=== PATIENT | male | born 1940 | race Caucasian/White ===

== ENCOUNTER 2018-07-12 08:50 | Emergency (ER) | payer MEDICARE, OTHER ==
[~2018-07-12] VITALS: Ht 165.1 cm; Wt 68.0 kg
[~2018-07-12 08:50] MED LIST: AMLO2.5T4 PO; ASCO-376 PO; ATEN25TA PO; BISA10SU12 RC; CRAN405C PO; DOCU-141 PO; FERR325T24 PO; GABA100C PO; HYDR-3024 PO; HYPR15DR9 EACHEYE; LEVO75TA7 PO; MAGN400O6 PO; MORP15TA PO; MULT1CAP34 PO; NA P133E RC; NITR0.4T13 SL; OMEP20TA5 PO; ONDA4TAB5 PO; SENN-168 PO; TAMS-3 PO
--- NOTE | 2018-07-12 09:23 | NUR ---
Patient is AOx4, refusing all diagnostic testing, MD notified.
--- NOTE | 2018-07-12 09:24 | NUR ---
MD talked to this patient again regarding the need for diagnostic tests. Patient refused all tests. Patient said that he cam to ER because he is now homeless & was "booted out" of his assisted living home.
--- NOTE | 2018-07-12 09:58 | NUR ---
concrete worker Milena is here in ER.
--- NOTE | 2018-07-12 10:22 | NUR ---
Patient walked to bathroom but did not provide any urine specimen. Urine cup was provided earlier.
--- NOTE | 2018-07-12 10:50 | NUR ---
Written and verbal discharge instructions were given to patient. Patient verbalizes understanding of instructions. Patient is ambulatory with steady gait. A list of available shelters in surrounding area was also provided. Patient signed the HOMELESS waiver form-wirnessed by me. Dietary prepared "to go" sandwich paper bag & bottle of juice were given to patient as well. New clothing from the donated clothes pile for homeless was also given by our marriage and family social worker Milena.
--- NOTE | 2018-07-12 16:50 | NUR ---
10:05am: SS consultation requested: SW met with patient. Patient is a 78 year old homeless male. Patient stated that he was evicted from his section 8 housing about 1 month ago, and has been living on the streets. SW asked patient if he had any family or friends that he can contact for assistance, and patient stated that he did not have anyone to call. SW offered patient information on homeless shelters and patient declined, stating "[facility] addict[facility] and people who will steal my stuff". However, patient was receptive to other homeless resources, such as places to go for meals and showers, and case management services. SW provided patient with the following resources: 1) [place] [facility] Directory, which includes locations throughout the [facility] that patient can go for hot meals, sack lunches, showers, and food pantries. 2) A list of medical clinics, mental health clinics, and substance abuse treatment programs. SW called [facility] [phone] and spoke with [place] to refer the patient for case management services, and [facility] stated that the patient could walk-in for services any time Tuesday through Tuesday from 8am-4pm. This information was relayed to the patient, who expressed understanding. A pair of pants was provided to the patient by this SW. A meal was provided to the patient by the ED nurse. Patient stated that he did not want assistance with transportation and wanted to be discharged to himself. Homeless patient waiver form signed by the patient. The waiver form, along with copies of the resources provided to the patient, were filed in patient's ED chart. Dr. Zambrano was informed of above. No further SS interventions needed at this time.
== END 2018-07-12 10:56 | disposition home or self-care (01) ==
LOC: ER 08:50
DX: R60.9 Edema, unspecified (principal); R35.0 Frequency of micturition; F17.200 Nicotine dependence, unspecified, uncomplicated; E03.9 Hypothyroidism, unspecified; Z59.0 Homelessness; Z88.6 Allergy status to analgesic agent; Z88.8 Allergy status to other drugs, medicaments and biological substances; Z79.899 Other long term (current) drug therapy; Z79.891 Long term (current) use of opiate analgesic
CPT/HCPCS: A4663

== ENCOUNTER 2018-07-12 15:59 | Emergency (ER) | payer MEDICARE, OTHER ==
[~2018-07-12] VITALS: Ht 165.1 cm; Wt 68.0 kg
[2018-07-12 16:30] LABS: CARBON DIOXIDE 29 mmol/L (21-32); CHLORIDE 106 mmol/L (98-107); CREATININE 1.2 mg/dL (0.6-1.3); GLUCOSE 108 mg/dL (74-106); UREA NITROGEN, BLOOD 21 mg/dL (7-18)
[2018-07-12 16:32] LABS: BASOPHILS # (AUTO) 0.1 K/uL (0.0-8.0); BASOPHILS % (AUTO) 1.4 % (0.0-2.0); EOSINOPHILS # (AUTO) 0.1 K/uL (0.0-0.7); EOSINOPHILS % (AUTO) 2.1 % (0.0-7.0); HEMATOCRIT 36.6 % (36.7-47.1); HEMOGLOBIN 12.6 g/dL (12.5-16.3); LYMPHOCYTES # (AUTO) 0.9 K/uL (20.0-40.0); LYMPHOCYTES % (AUTO) 20.6 % (20.5-51.5); MEAN CORPUSCULAR HEMOGLOBIN 30.7 uug (23.8-33.4); MEAN CORPUSCULAR HGB CONC 34 g/dL (32.5-36.3); MEAN CORPUSCULAR VOLUME 89.6 fL (73.0-96.2); MONOCYTES # (AUTO) 0.4 K/uL (2.0-10.0); MONOCYTES % (AUTO) 9.6 % (0.0-11.0); NEUTROPHILS % (AUTO) 66.3 % (38.5-71.5); PLATELET COUNT (AUTO) 65 K/uL (152-348); RED BLOOD CELL COUNT(AUTO) 4.09 MIL/uL (4.06-5.63); WHITE BLOOD COUNT (AUTO) 4.5 K/uL (3.6-10.2)
[2018-07-12 16:42] LABS: ALANINE AMINOTRANSFERASE 106 U/L (16-63); ALKALINE PHOSPHATASE 110 U/L (50-136); ASPARTATE AMINOTRANSFERASE 93 U/L (15-37); BILIRUBIN,DIRECT 0.3 mg/dL (0.0-0.2); BILIRUBIN,TOTAL 0.7 mg/dL (0.2-1.0); TOTAL PROTEIN, SERUM 6.9 g/dL (6.4-8.2)
[2018-07-12] MEDS ORDERED: FUROSEMIDE 20 MG/2 ML VIAL IV ONE (17:15)
[2018-07-12] MEDS ORDERED: FUROSEMIDE 20 MG/2 ML VIAL ONE (17:21)
--- NOTE | 2018-07-12 17:30 | NUR ---
Adult diapers provided.
[2018-07-12 17:34] LABS: LYMPHOCYTES % (MANUAL) 19 % (20-40); NEUTROPHILS % (MANUAL) 78 % (42-75)
[2018-07-12 17:35] LABS: MONOCYTES % (MANUAL) 3 % (2-10)
--- NOTE | 2018-07-12 17:40 | NUR ---
IV removed. Catheter intact and site benign. Pressure and 4x4 gauze applied to site. No bleeding noted. Patient was given written and verbal discharge instructions. Patient verbalizes understanding of instructions. Patient is ambulatory with steady gait using his own walker. Patient still refuses offer of long term placement@this time. Patient still has the list of available shelters in surrounding area. Please see social security benefits interviewer's previous notes from today- no changes with social service needs at this time. Urinal x2 & 3 adult diapers were provided per patient's request
== END 2018-07-12 17:45 | disposition home or self-care (01) ==
LOC: ER 16:02
DX: R60.9 Edema, unspecified (principal); E03.9 Hypothyroidism, unspecified; F17.200 Nicotine dependence, unspecified, uncomplicated; Z88.6 Allergy status to analgesic agent; Z88.8 Allergy status to other drugs, medicaments and biological substances; Z59.0 Homelessness; Z79.899 Other long term (current) drug therapy
CPT/HCPCS: 36415; 71045; 80048; 80076; 83880; 84484; 85025; 85730; 96374; 99284; J1940; 70030-TC; A4663

== ENCOUNTER 2018-07-13 21:43 | Emergency (ER) | payer MEDICARE, OTHER ==
[~2018-07-13] VITALS: Ht 165.1 cm; Wt 64.9 kg
[2018-07-13] MEDS ORDERED: ONDANSETRON 4 MG/2 ML VIAL IV ONE (22:30)
[2018-07-13] MEDS ORDERED: HYDROMORPHONE 1 MG/1 ML DISP.SYRIN IV ONE (22:30)
--- NOTE | 2018-07-13 22:38 | NUR ---
PATIENT REFUSED TO HAVE IV HEP LOCK INSERTED AND LAB DRAW. DR CASTRO AWARE. PATIENT REFUSED IV MEDICATION TO BE GIVEN ALSO.
--- NOTE | 2018-07-13 22:45 | NUR ---
PATIENT URINATED 150ML OF CLEAR URINE ON URINAL. BLADDER SCAN PROFORMED AFTER. RESULT WAS 25ML
--- NOTE | 2018-07-13 22:50 | NUR ---
PATIENT OUT OF UNIT FOR CT SCAN VIA GURNY
[2018-07-13 22:58] LABS: *BILIRUBIN,URIN NEGATIVE (NEGATIVE); *BLOOD, URINE NEGATIVE (NEGATIVE); *CLARITY,URINE CLEAR (CLEAR); *COLOR,URINE YELLOW (YELLOW); *KETONES,URINE NEGATIVE (NEGATIVE); LEUKOCYTE ESTERASE ,URINE NEGATIVE (NEGATIVE); NITRITE, URINE NEGATIVE (NEGATIVE); UGLUCOSE NEGATIVE (NEGATIVE)
[2018-07-13 23:07] LABS: BACTERIA,URINE NONE SEEN /HPF (NONE SEEN); RBC,URINE 0-3 /HPF (0-3); SQUAMOUS EPITHELIAL CELL,UR FEW /HPF (NONE SEEN); WBC,URINE 0-3 /HPF (0-3)
[2018-07-13 23:08] LABS: MUCUS,URINE FEW /LPF (0-FEW)
--- NOTE | 2018-07-13 23:16 | NUR ---
PATIENT BACK FROM CT SCAN WITH NO DISTRESS NOTED
--- NOTE | 2018-07-14 00:15 | NUR ---
PATIENT SLEEPING IN ROOM WITH NO DISTRESS NOTED. CT RESULT PENDING
--- NOTE | 2018-07-14 01:58 | NUR ---
PATIENT WAS GIVEN MEAL. NO DISTRESS NOTED
--- NOTE | 2018-07-14 03:00 | NUR ---
PATIENT IN ROOM WITH NO DISTRESS NOTED
--- NOTE | 2018-07-14 06:27 | NUR ---
Patient given written and verbal discharge instructions. Patient verbalizes understanding of instructions. Patient is ambulatory with steady gait. Refuses offer of group home placement. Patient given list of available shelters in surrounding area.
[2018-07-14 06:28] VITALS: BP 145/88
== END 2018-07-14 06:29 | disposition home or self-care (01) ==
LOC: ER 21:43
DX: G89.29 Other chronic pain (principal); M54.5 Low back pain; R32 Unspecified urinary incontinence; R15.9 Full incontinence of feces; F31.9 Bipolar disorder, unspecified; N40.0 Benign prostatic hyperplasia without lower urinary tract symptoms; E03.9 Hypothyroidism, unspecified; F17.200 Nicotine dependence, unspecified, uncomplicated; Z59.0 Homelessness; Z88.6 Allergy status to analgesic agent; Z88.8 Allergy status to other drugs, medicaments and biological substances; Z79.899 Other long term (current) drug therapy
CPT/HCPCS: 72131; A4663

== ENCOUNTER 2018-07-21 09:09 | Emergency (ER) | payer MEDICARE, OTHER ==
[~2018-07-21] VITALS: Ht 165.1 cm; Wt 68.0 kg
--- NOTE | 2018-07-21 09:27 | NUR ---
Dr Abdullahi is at bedside doing his MSE.
--- NOTE | 2018-07-21 09:38 | NUR ---
Patient does not wish to proceed with medical care recommended by Dr. Abdullahi. Patient given information related to possible complications, up to and including , which could occur as a result of leaving the hospital at this time. Patient verbalizes understanding of risks involved due to leaving against medical advice. Patient has signed AMA form. Patient is ambulatory with steady gait. Refuses offer of nursing home placement. Patient given list of available shelters in surrounding area. Patient signed the HOMELESS patient waiver form.
== END 2018-07-21 09:42 | disposition left against medical advice (07) ==
LOC: ER 09:09
DX: R19.7 Diarrhea, unspecified (principal); M79.601 Pain in right arm; M79.602 Pain in left arm; E03.9 Hypothyroidism, unspecified; F17.200 Nicotine dependence, unspecified, uncomplicated; Z88.6 Allergy status to analgesic agent; Z88.5 Allergy status to narcotic agent; Z88.8 Allergy status to other drugs, medicaments and biological substances; Z59.0 Homelessness
CPT/HCPCS: A4663

== ENCOUNTER 2018-07-21 23:23 | Emergency (ER) | payer MEDICARE, OTHER ==
[~2018-07-21] VITALS: Ht 165.1 cm; Wt 68.0 kg
--- NOTE | 2018-07-21 23:40 | NUR ---
Pt. ambulated into ED w/ multiple complaints, 01/11 CP and arm pain since this morning, diahrrea x 3 weeks, pt. is homeless and reports hx of cirrhosis, hep. C, and gall bladder removal, A/Ox4, pt. 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
--- NOTE | 2018-07-21 23:43 | NUR ---
at bedside for MSE
--- NOTE | 2018-07-22 00:05 | NUR ---
Rad. tech. at bedside for CXR
--- NOTE | 2018-07-22 00:21 | NUR ---
Blood specimens collected and sent to lab,
[2018-07-22 00:23] LABS: BASOPHILS # (AUTO) 0.1 K/uL (0.0-8.0); BASOPHILS % (AUTO) 1.2 % (0.0-2.0); EOSINOPHILS # (AUTO) 0.1 K/uL (0.0-0.7); EOSINOPHILS % (AUTO) 2.5 % (0.0-7.0); HEMATOCRIT 36.4 % (36.7-47.1); HEMOGLOBIN 12.6 g/dL (12.5-16.3); LYMPHOCYTES # (AUTO) 1.2 K/uL (20.0-40.0); LYMPHOCYTES % (AUTO) 23.6 % (20.5-51.5); MEAN CORPUSCULAR HEMOGLOBIN 31.3 uug (23.8-33.4); MEAN CORPUSCULAR HGB CONC 35 g/dL (32.5-36.3); MEAN CORPUSCULAR VOLUME 90.3 fL (73.0-96.2); MONOCYTES # (AUTO) 0.3 K/uL (2.0-10.0); MONOCYTES % (AUTO) 6.8 % (0.0-11.0); NEUTROPHILS # (AUTO) 3.3 K/uL (1.8-8.9); NEUTROPHILS % (AUTO) 65.9 % (38.5-71.5); PLATELET COUNT (AUTO) 71 K/uL (152-348); RED BLOOD CELL COUNT(AUTO) 4.03 MIL/uL (4.06-5.63)
[2018-07-22 00:47] LABS: ETHANOL < 3 MG/DL (0-0)
[2018-07-22 01:02] LABS: ALANINE AMINOTRANSFERASE 131 U/L (16-63); ALKALINE PHOSPHATASE 103 U/L (50-136); ASPARTATE AMINOTRANSFERASE 112 U/L (15-37); BILIRUBIN,DIRECT 0.2 mg/dL (0.0-0.2); BILIRUBIN,TOTAL 0.7 mg/dL (0.2-1.0); CARBON DIOXIDE 28 mmol/L (21-32); CHLORIDE 108 mmol/L (98-107); CREATININE 1.2 mg/dL (0.6-1.3); GLUCOSE 157 mg/dL (74-106); POTASSIUM 3.8 mmol/L (3.5-5.1); TOTAL PROTEIN, SERUM 6.9 g/dL (6.4-8.2)
[2018-07-22 01:18] LABS: UREA NITROGEN, BLOOD 24 mg/dL (7-18)
--- NOTE | 2018-07-22 02:20 | NUR ---
Pt. resting in bed, w/ eyes closed, IV patent - no s/s infiltration phlebitis, monitoring from nurse station,
--- NOTE | 2018-07-22 03:22 | NUR ---
Pt. resting in bed w/ eyes closed, IV patent - flushes w/o difficulty, all needs met,
--- NOTE | 2018-07-22 04:16 | NUR ---
Pt. resting in bed w/ eyes closed, NAD,
--- NOTE | 2018-07-22 05:51 | NUR ---
Patient discharged to home in stable conditon. Written and verbal after care instructions given. Patient verbalizes understanding of instructions. Pt. d/c per MD order, d/c paper signed, homeless resource packet given, pt. refuses assistance w/ longterm at this time, ID band/IV removed, all belongings w/ pt., ambulated off unit w/ steady gait, NAD
== END 2018-07-22 05:54 | disposition home or self-care (01) ==
LOC: ER 23:25
DX: R07.89 Other chest pain (principal); E03.9 Hypothyroidism, unspecified; F17.200 Nicotine dependence, unspecified, uncomplicated; Z88.6 Allergy status to analgesic agent; Z88.8 Allergy status to other drugs, medicaments and biological substances; Z59.0 Homelessness
CPT/HCPCS: 36415; 71045; 80048; 80076; 83880; 84484 ×2; 85025; 85730; 93005; 99284; G0480; 70030-TC; A4663

== ENCOUNTER 2018-09-04 12:42 | Emergency (ER) | payer MEDICARE, OTHER ==
[~2018-09-04] VITALS: Ht 165.1 cm; Wt 68.0 kg
--- NOTE | 2018-09-04 13:00 | NUR ---
PT WALKED INTO BATHROOM WITH STEADY GAIT.
--- NOTE | 2018-09-04 13:40 | NUR ---
Patient does not wish to proceed with medical care recommended by Dr. Rufino ESCALANTE ). Patient given information related to possible complications, up to and including , which could occur as a result of leaving the hospital at this time. Patient verbalizes understanding of risks involved due to leaving against medical advice. Patient has signed AMA form.
--- NOTE | 2018-09-04 13:43 | NUR ---
PT REFUSED BLOOD DRAW, PT REFUSED ANY OTHER INTERVENTION. PT REFUSED TO SEE A A R COLLECTIONS REP. PT REFUSED TO SIGN ANY PAPER.
== END 2018-09-04 13:51 | disposition left against medical advice (07) ==
LOC: ER 12:42
DX: Z00.00 Encounter for general adult medical examination without abnormal findings (principal); E03.9 Hypothyroidism, unspecified; F17.200 Nicotine dependence, unspecified, uncomplicated; Z59.0 Homelessness; Z88.8 Allergy status to other drugs, medicaments and biological substances; Z88.6 Allergy status to analgesic agent
CPT/HCPCS: A4663